=== PATIENT | male | born 1975 | race Caucasian/White ===

== ENCOUNTER 2016-12-19 16:21 | Emergency (ER) | payer OTHER ==
[2016-12-19 17:06] LABS: BASO # 0.1 K/mm3 (0.0-0.2); BASO % 0.7 % (0.0-1.0); EOS # 0.3 K/mm3 (0.0-0.50); EOS % 3.4 % (0.0-3.0); LARGE UNSTAINED CELL # 0.2 K/mm3 (0.0-0.4); LARGE UNSTAINED CELL % 2.4 % (0.0-4.0); LYMPH # 3.1 K/mm3 (1.5-4.5); LYMPH % 35.2 % (24.0-44.0); MEAN CORPUSCULAR VOLUME 88.6 fl (80.0-96.0); MONO # 0.6 K/mm3 (0.0-0.8); MONO % 6.6 % (0.0-5.0); NEUTROPHILS # 4.6 K/mm3 (1.8-7.7); NEUTROPHILS % 51.6 % (36.0-66.0); PLATELET COUNT, AUTOMATED 261 k/mm3 (150-450); RED CELL DISTRIBUTION WIDTH 12.5 % (11.5-14.5); WHITE BLOOD COUNT 8.9 K/mm3 (4.0-10.0)
--- NOTE | 2016-12-19 17:07 | REP ---
Portable chest x-ray: Sitting AP view. History: Chest pain. Findings: The lungs are well inflated and free of infiltrate. Pleural angles are sharp. Heart size is normal. Pulmonary vasculature is not increased. Impression: No active disease. Signed by Ken Devine MD 12/20/2016 07:50 A
[2016-12-19 17:31] LABS: ANION GAP 7 MEQ/L (8-16); BLOOD UREA NITROGEN 11 MG/DL (7-18); CARBON DIOXIDE LEVEL 30 MEQ/L (21-32); CHLORIDE LEVEL 105 MEQ/L (98-107); CREATININE FOR GFR 1.02 MG/DL (0.70-1.30); GLOMERULAR FILTRATION RATE > 60.0 (>60); GLUCOSE, FASTING 85 MG/DL (70-105); POTASSIUM SERUM 3.8 MEQ/L (3.5-5.1); SODIUM LEVEL 142 MEQ/L (136-145)
[2016-12-19] MEDS ORDERED: KETOROLAC 30 MG/ML VIAL (J1885) As Ordered ONE (20:13)
--- NOTE | 2016-12-19 20:23 | EDDOCDS ---
Physician Documentation [facility] Name: Eleazar Lopez Age: 41 yrs Sex: Male : 1975 Arrival Date: 12/19/2016 Time: 16:21 Bed 14 Private MD: Klarissa DAY Disposition: 12/19/16 19:22 Discharged to Home/Self Care. Impression: Other chest pain - low risk acute coronary syndrome or pulmonary embolism. - Condition is Stable. - Discharge Instructions: Nonspecific Chest Pain. - Medication Reconciliation, Local Pharmacy Hours form. - [facility] up: [facility]; When: Call to arrange an appointment; Reason: Recheck today's complaints, Continuance of care. - Problem is new. - Symptoms are unchanged. - Notes: Use Ibuprofen and Tylenol, as needed, for pain Return to the ED for any further concerns Historical: - Allergies: Codeine; Oxycodone HCl; - Home Meds: 1. Prescribed meds yesterday, has not started, Paxil, Prazosin, Hydroxazine - PMHx: Migraine headaches; PTSD; A-Fib; - PSHx: Cholecystectomy; Right shoulder reconstructive surgery; - Social history: Smoking status: Patient uses tobacco products, current every day smoker. No barriers to communication noted, The patient speaks fluent Korean. - Family history: Not pertinent. - : The pt / caregiver states he / she is not on anticoagulants. Home medication list is obtained from the patient. - Exposure Risk Screening:: None identified. Vital Signs: 12/19 16:24 BP 164 / 102; Pulse 86; Resp 16; Pulse Ox 100% on R/A; Weight 108.41 kg / 239 lbs (R); elp Height 69 in. (175.26 cm) (R); 16:39 BP 154 / 95 (auto/); kcs 16:40 Pulse 74 MON; Pulse Ox 96% ; kcs 17:08 BP 154 / 86 (auto/); kcs 17:08 Pulse 70 MON; Pulse Ox 98% ; kcs 17:38 BP 137 / 79 (auto/); kcs 17:38 Pulse 70 MON; Pulse Ox 96% ; kcs 18:08 BP 143 / 91 (auto/); kcs 18:08 Pulse 70 MON; Resp 18; Pulse Ox 95% ; kcs 18:38 BP 143 / 86 (auto/); kcs 18:38 Pulse 68 MON; Pulse Ox 97% ; kcs 19:08 BP 135 / 86 (auto/); af2 19:08 Pulse 72 MON; Resp 22 S; Pulse Ox 95% on R/A; af2 20:08 BP 146 / 92 (auto/); af2 20:08 Pulse 72 MON; Resp 18 S; Temp 98.4(O); Pulse Ox 96% on R/A; Pain 7/10; af2 16:24 Body Mass Index 35.29 (108.41 kg, 175.26 cm) elp MDM: 16:32 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 sd1 16:32 IV Saline Lock ordered. sd1 16:32 Rhythm Strip to chart ordered. sd1 16:32 Undress patient appropriately for examination ordered. sd1 16:34 Basic Metabolic Profile Ordered. EDMS 16:34 CBC with Diff Ordered. EDMS 16:34 Cardiac Injury Profile Ordered. EDMS 16:34 Troponin Ordered. EDMS 16:34 portable chest Ordered. EDMS 16:34 ECG WITH READING ER PHYS+CARDIAG ordered. EDMS 17:51 Repeat Temperature - Oral: Inform provider of result ordered. le 17:52 D-Dimer Quant Ordered. EDMS 18:02 REGULAR+DIET ordered. EDMS 19:18 Basic Metabolic Profile Reviewed. le 19:18 CBC with Diff Reviewed. le 19:18 Cardiac Injury Profile Reviewed. le 19:18 Troponin Reviewed. le 19:18 D-Dimer Quant Reviewed. le 19:18 portable chest Reviewed. le 19:59 Financial registration complete. ks16 20:05 ketorolac 30 mg IVP once ordered. le 20:11 [facility] Payment Agreement was scanned into [employer] and attached to record. ks16 Administered Medications: 20:19 Drug: ketorolac 30 mg [ketorolac 30 mg/mL (1 mL) injection solution (1 mL)] Route: IVP; af2 Site: right antecubital; Signatures: Dispatcher [employer] EDOH Carmenza Loja MD MD sd1 Vandana Ryan, RN RN Sam Luna RN RN Celine Metz, HADOOP ADMIN HADOOP ADMIN Sasha Andrews RN RN af2 Alina Orosco, Reg Reg ks16 The chart was reviewed and I authenticate all verbal orders and agree with the evaluation and treatment provided.Attachments: 20:11 [facility] Payment Agreement ks16 MTDD
--- NOTE | 2016-12-19 20:23 | EDDOCDS ---
Nurse's Notes [facility] Name: Eleazar Lopez Age: 41 yrs Sex: Male : 1975 Arrival Date: 12/19/2016 Time: 16:21 Bed 14 Private MD: PRKlarissa CHRISTIAN Diagnosis: Other chest pain-low risk acute coronary syndrome or pulmonary embolism Presentation: 12/19 16:25 Presenting complaint: Patient states: Left sided chest pain radiating to left shoulder dwg ''on and off'' since 10am today. Aspirin was not taken prior to arrival. Adult Sepsis Screening: The patient does not have new or worsening altered mentation. Patient's respiratory rate is less than 22. Systolic blood pressure is greater than 100. Patient has a qSOFA score of 0- Negative Sepsis Screen. Suicide/Homicide risk assessment- the patient denies having any suicidal and/or homicidal ideations and does not present with any other emotional, behavioral or mental health complaints. Status: Retired . Transition of care: patient was not received from another setting of care. 16:25 Acuity: MARINA Level 2 dwg 16:25 Method Of Arrival: Walkin/Carried/Asstd dwg Triage Assessment: 16:32 General: Appears in no apparent distress, uncomfortable. Pain: Pain currently is 6 out dwg of 10 on a pain scale. HIV screening NA for this visit Offered previously. 20:22 Cardiovascular: Chest pain episodes. af2 Historical: - Allergies: Codeine; Oxycodone HCl; - Home Meds: 1. Prescribed meds yesterday, has not started, Paxil, Prazosin, Hydroxazine - PMHx: Migraine headaches; PTSD; A-Fib; - PSHx: Cholecystectomy; Right shoulder reconstructive surgery; - Social history: Smoking status: Patient uses tobacco products, current every day smoker. No barriers to communication noted, The patient speaks fluent Pashto. - Family history: Not pertinent. - : The pt / caregiver states he / she is not on anticoagulants. Home medication list is obtained from the patient. - Exposure Risk Screening:: None identified. Screenin:04 Screening information is obtained from the patient. Fall risk: No risks identified. kcs Assistance ADL's: requires no assistance with activities of daily living. Abuse/DV Screen: The patient / caregiver reports he/she is: not in a situation that causes fear, pain or injury. Nutritional screening: No deficits noted. Advance Directives: Currently, there is no health care proxy. home support is adequate. Assessment: 16:57 General: Appears comfortable, well developed, well nourished, well groomed, Behavior is kcs anxious, cooperative, pleasant. Pain: Location: chest. Neurological: Level of Consciousness is awake, alert. Cardiovascular: Rhythm is sinus rhythm. Respiratory: Airway is patent Respiratory effort is even, unlabored, Respiratory pattern is regular, symmetrical, slight sock sara noted both ankles - having tingling in both feet also. Breath sounds are clear bilaterally. Derm: Skin is intact, is healthy with good turgor, Skin is dry, Skin is flushed. 17:49 General: sitting up on stretcher. stating left sided chest pain that radiates to left srm arm. vs stable. NSR on monitor. Antonio Ryan rn and Ángel Whalen JANITOR CLEANER aware. 18:13 Reassessment: Patient states symptoms have not improved. Drinking kasey lae and kcs retaining. Awaiting dinner. Patient was re-evaluated by provider after 2nd episode of chest pain.. General: Appears comfortable, well developed, well nourished, well groomed, Behavior is cooperative, pleasant. Pain: Location: chest to left arm. Pain: Pain currently is 5 out of 10 on a pain scale. Neurological: Level of Consciousness is awake, alert. Cardiovascular: Rhythm is sinus rhythm. Respiratory: Airway is patent Respiratory effort is even, unlabored, Respiratory pattern is regular, symmetrical. Derm: Skin is intact, is healthy with good turgor, Skin is dry, Skin is normal. 18:36 Reassessment: patient eating dinner. kcs 19:13 General: Appears in no apparent distress, comfortable, Behavior is cooperative, pt af2 updated regarding plan of care at this time. . Neurological: Level of Consciousness is awake, alert, obeys commands, Oriented to person, place, time. Cardiovascular: Rhythm is sinus rhythm. Respiratory: Airway is patent Respiratory effort is even, unlabored. Derm: Skin is intact, is healthy with good turgor, Skin is dry, Skin is normal. 20:20 General: Appears in no apparent distress, comfortable, Behavior is appropriate for age, af2 cooperative, provider at bedside to speak with pt.. Neurological: Level of Consciousness is awake, alert, obeys commands, Oriented to person, place, time. Cardiovascular: Rhythm is sinus rhythm No ectopy. Respiratory: Airway is patent Respiratory effort is even, unlabored. Derm: Skin is normal. Vital Signs: 16:24 BP 164 / 102; Pulse 86; Resp 16; Pulse Ox 100% on R/A; Weight 108.41 kg (R); Height 69 elp in. (175.26 cm) (R); 16:39 BP 154 / 95 (auto/); kcs 16:40 Pulse 74 MON; Pulse Ox 96% ; kcs 17:08 BP 154 / 86 (auto/); kcs 17:08 Pulse 70 MON; Pulse Ox 98% ; kcs 17:38 BP 137 / 79 (auto/); kcs 17:38 Pulse 70 MON; Pulse Ox 96% ; kcs 18:08 BP 143 / 91 (auto/); kcs 18:08 Pulse 70 MON; Resp 18; Pulse Ox 95% ; kcs 18:38 BP 143 / 86 (auto/); kcs 18:38 Pulse 68 MON; Pulse Ox 97% ; kcs 19:08 BP 135 / 86 (auto/); af2 19:08 Pulse 72 MON; Resp 22 S; Pulse Ox 95% on R/A; af2 20:08 BP 146 / 92 (auto/); af2 20:08 Pulse 72 MON; Resp 18 S; Temp 98.4(O); Pulse Ox 96% on R/A; Pain 7/10; af2 16:24 Body Mass Index 35.29 (108.41 kg, 175.26 cm) elp Vitals: 16:24 Log In Time: December 19, 2016 at 16:22. RN notified that patient meets Red Flag elp criteria. ED Course: 16:21 Patient visited by Leyla Pena PCA. elp 16:21 [facility], Klarissa Reyna is Private Physician. elp 16:21 Patient moved to Waiting elp 16:25 Patient visited by Leyla Pena PCA. elp 16:27 Triage Initiated dwg 16:33 Patient moved to 14 dwg 16:45 Inserted saline lock: 20 gauge in right antecubital area The patient tolerated the kcs procedure well. 16:50 Basic Metabolic Profile Sent. kcs 16:50 CBC with Diff Sent. kcs 16:50 Cardiac Injury Profile Sent. kcs 16:50 Troponin Sent. kcs 17:06 Patient visited by Mony Hope PCA. ct3 17:06 EKG done. (by ED staff). Reviewed by Celine PEÑA. ct3 17:18 portable chest Returned. EDMS 17:28 Celine Whalen FNP is PHCP. le 17:50 Patient visited by Velma Franz RN. srm 18:13 Patient visited by Celine Whalen FNP. le 18:13 Patient visited by Celine Whalen FNP. le 18:56 Sasha Malagon,RN is Primary Nurse. af2 19:04 The patient / caregiver is instructed regarding the plan of care and ED course. Report kcs given to Sasha Malagon RN. front desk monitor on. Pulse ox on. NIBP on. 19:10 Patient visited by Sasha Malagon RN. af2 19:14 Patient visited by Sasha Malagon RN. af2 19:22 [facility] is Referral Physician. le 20:08 Patient name changed from Eleazar\S\\S\John\S\ to Eleazar\S\ \S\[place]. EDMS 20:11 [facility] Payment Agreement was scanned into [employer] and attached to record. ks16 20:21 Discontinued IV lock intact, bleeding controlled, pressure dressing applied, No af2 redness/swelling at site. No procedures done that require assistance. Administered Medications: 20:19 Drug: ketorolac 30 mg [ketorolac 30 mg/mL (1 mL) injection solution (1 mL)] Route: IVP; af2 Site: right antecubital; Order Results: Lab Order: Basic Metabolic Profile; SPEC'M 12/19/16 16:49 Test: GLUCOSE, FASTING; Value: 85; Range: 70-105; Units: MG/DL; Status: F Test: BLOOD UREA NITROGEN; Value: 11; Range: 7-18; Units: MG/DL; Status: F Test: CREATININE FOR GFR; Value: 1.02; Range: 0.70-1.30; Units: MG/DL; Status: F Test: GLOMERULAR FILTRATION RATE; Value: > 60.0; Range: >60; Status: F Test: SODIUM LEVEL; Value: 142; Range: 136-145; Units: MEQ/L; Status: F Test: POTASSIUM SERUM; Value: 3.8; Range: 3.5-5.1; Units: MEQ/L; Status: F Test: CHLORIDE LEVEL; Value: 105; Range: 98-107; Units: MEQ/L; Status: F Test: CARBON DIOXIDE LEVEL; Value: 30; Range: 21-32; Units: MEQ/L; Status: F Test: ANION GAP; Value: 7; Range: 8-16; Abnormal: Below low normal; Units: MEQ/L; Status: F Test: CALCIUM LEVEL; Value: 9.0; Range: 8.5-10.1; Units: MG/DL; Status: F Test Note: ; Units are mL/min/1.73 m2 Chronic Kidney Disease Staging per NKF: Stage I & II GFR >=60 Normal to Mildly Decreased Stage III GFR 30-59 Moderately Decreased Stage IV GFR 15-29 Severely Decreased Stage V GFR <15 Very Little GFR Left ESRD GFR <15 on CARTON INSPECTOR Lab Order: CBC with Diff; SPEC'M 12/19/16 16:49 Test: WHITE BLOOD COUNT; Value: 8.9; Range: 4.0-10.0; Units: K/mm3; Status: F Test: RED BLOOD COUNT; Value: 5.76; Range: 4.30-6.10; Units: M/mm3; Status: F Test: HEMOGLOBIN; Value: 17.9; Range: 14.0-18.0; Units: g/dl; Status: F Test: HEMATOCRIT; Value: 51.1; Range: 42.0-52.0; Units: %; Status: F Test: MEAN CORPUSCULAR VOLUME; Value: 88.6; Range: 80.0-96.0; Units: fl; Status: F Test: MEAN CORPUSCULAR HEMOGLOBIN; Value: 31.0; Range: 27.0-33.0; Units: pg; Status: F Test: MEAN CORPUSCULAR HGB CONC; Value: 35.0; Range: 32.0-36.5; Units: g/dl; Status: F Test: RED CELL DISTRIBUTION WIDTH; Value: 12.5; Range: 11.5-14.5; Units: %; Status: F Test: PLATELET COUNT, AUTOMATED; Value: 261; Range: 150-450; Units: k/mm3; Status: F Test: NEUTROPHILS %; Value: 51.6; Range: 36.0-66.0; Units: %; Status: F Test: LYMPH %; Value: 35.2; Range: 24.0-44.0; Units: %; Status: F Test: MONO %; Value: 6.6; Range: 0.0-5.0; Abnormal: Above high normal; Units: %; Status: F Test: EOS %; Value: 3.4; Range: 0.0-3.0; Abnormal: Above high normal; Units: %; Status: F Test: BASO %; Value: 0.7; Range: 0.0-1.0; Units: %; Status: F Test: LARGE UNSTAINED CELL %; Value: 2.4; Range: 0.0-4.0; Units: %; Status: F Test: NEUTROPHILS #; Value: 4.6; Range: 1.8-7.7; Units: K/mm3; Status: F Test: LYMPH #; Value: 3.1; Range: 1.5-4.5; Units: K/mm3; Status: F Test: MONO #; Value: 0.6; Range: 0.0-0.8; Units: K/mm3; Status: F Test: EOS #; Value: 0.3; Range: 0.0-0.50; Units: K/mm3; Status: F Test: BASO #; Value: 0.1; Range: 0.0-0.2; Units: K/mm3; Status: F Test: LARGE UNSTAINED CELL #; Value: 0.2; Range: 0.0-0.4; Units: K/mm3; Status: F Lab Order: Cardiac Injury Profile; SPEC'M 12/19/16 16:49 Test: CPK CREATINE PHOSPHOKINASE; Value: 101; Range: 39-308; Units: U/L; Status: F Test: CK-MB VALUE MASS; Value: 1.0; Range: 0.0-3.6; Units: NG/ML; Status: F Test: MB/CK RELATIVE INDEX; Value: 0.99; Range: < OR =4; Status: F Test Note: ; DIAGNOSIS CRITERIA MMB ng/ml Relative Index (RI) NON-AMI < or = 5 N/A HARVEY ZONE > 5 < or = 4 AMI > 5 > 4 Lab Order: Troponin; SPEC'M 12/19/16 16:49 Test: TROPONIN I; Value: < 0.02; Range: < 0.10; Units: NG/ML; Status: F Test Note: ; Troponin I Reference Interval for [employer] (TUGG) LOCI: 99th Percentile= 0.00-0.045 ng/ml Risk Stratification: <= 0.10 ng/ml Decreased Risk for Adverse Clinical Events. 0.10-1.50 ng/ml Increased Risk for Adverse Clinical Events. Evaluation of additional criterion and/or repeat testing in 2-6 hours is suggested to rule out myocardial damage. >= 1.50 ng/ml Indicative of Myocardial Injury. Lab Order: D-Dimer Quant; SPEC'M 12/19/16 16:49 Test: D-DIMER QUANT; Value: < 270.0; Range: <500; Units: ng/ml; Status: F Radiology Order: portable chest Test: portable chest REASON FOR EXAMINATION: Chest Pain; Portable chest x-ray: Sitting AP view.; ; History: Chest pain.; ; Findings: The lungs are well inflated and free of infiltrate. Pleural angles; are sharp. Heart size is normal. Pulmonary vasculature is not increased.; ; Impression:; ; No active disease.; ; ; ; ; Unreviewed; Outcome: 19:22 Discharge ordered by Provider. le 20:21 Discharge Assessment: Patient awake, alert and oriented x 3. No cognitive and/or af2 functional deficits noted. Patient verbalized understanding of disposition instructions. patient administered narcotics - no. The following High Risk Discharge criteria are identified: None. Discharged to home ambulatory. Condition: stable. Discharge instructions given to patient, Instructed on discharge instructions, follow up and referral plans. Demonstrated understanding of instructions, Pt was receptive of discharge instructions/ teaching. No special radiology studies were completed. Property :Personal belongings accompany Pt. 20:22 Patient left the ED. af2 Signatures: Dispatcher [employer] EDVandana Perez RN Sam James RN RN dwg Michelson, Staci, RN RN srm Westcott, Celine, JANITOR CLEANER JANITOR CLEANER le Mony Hope, ROLLER CLEANER ROLLER CLEANER ct3 Leyla Pena, ROLLER CLEANER ROLLER CLEANER elp Sasha Malagon RN RN af2 Ana Luisa, Alina, Reg Reg ks16 Corrections: (The following items were deleted from the chart) 18:22 18:13 Reassessment: Patient states symptoms have not improved. kcs kcs 19:14 19:10 General: Appears comfortable, Behavior is cooperative, assumed care of pt at this af2 time, updated regarding plan of care for admission. pt finished neb treatment, reports symptoms have improved- continues to wheeze.. af2 19: 19:10 Neurological: Level of Consciousness is awake, alert, af2 af2 19: 19:10 Cardiovascular: Rhythm is sinus rhythm No ectopy. af2 af2 : 19:10 Respiratory: Airway is patent Respiratory effort is labored, Respiratory pattern af2 is regular, symmetrical, Breath sounds with wheezes bilaterally. Reports shortness of breath af2 : 19:10 Derm: Skin is normal, af2 af2 MTDD
--- NOTE | 2016-12-20 07:30 | ECGEPIP ---
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
--- NOTE | 2016-12-21 21:23 | EDDOCDS ---
Physician Documentation [facility] Name: Eleazar Lopez Age: 41 yrs Sex: Male : 1975 Arrival Date: 12/19/2016 Time: 16:21 Bed 14 Private MD: Klarissa DAY Disposition: 12/19/16 19:22 Discharged to Home/Self Care. Impression: Other chest pain - low risk acute coronary syndrome or pulmonary embolism. - Condition is Stable. - Discharge Instructions: Nonspecific Chest Pain. - Medication Reconciliation, Local Pharmacy Hours form. - Follow up: [facility]; When: Call to arrange an appointment; Reason: Recheck today's complaints, Continuance of care. - Problem is new. - Symptoms are unchanged. - Notes: Use Ibuprofen and Tylenol, as needed, for pain Return to the ED for any further concerns Historical: - Allergies: Codeine; Oxycodone HCl; - Home Meds: 1. Prescribed meds yesterday, has not started, Paxil, Prazosin, Hydroxazine - PMHx: Migraine headaches; PTSD; A-Fib; - PSHx: Cholecystectomy; Right shoulder reconstructive surgery; - Social history: Smoking status: Patient uses tobacco products, current every day smoker. No barriers to communication noted, The patient speaks fluent Kinyarwanda. - Family history: Not pertinent. - : The pt / caregiver states he / she is not on anticoagulants. Home medication list is obtained from the patient. - Exposure Risk Screening:: None identified. Vital Signs: 12/19 16:24 BP 164 / 102; Pulse 86; Resp 16; Pulse Ox 100% on R/A; Weight 108.41 kg / 239 lbs (R); elp Height 69 in. (175.26 cm) (R); 16:39 BP 154 / 95 (auto/); kcs 16:40 Pulse 74 MON; Pulse Ox 96% ; kcs 17:08 BP 154 / 86 (auto/); kcs 17:08 Pulse 70 MON; Pulse Ox 98% ; kcs 17:38 BP 137 / 79 (auto/); kcs 17:38 Pulse 70 MON; Pulse Ox 96% ; kcs 18:08 BP 143 / 91 (auto/); kcs 18:08 Pulse 70 MON; Resp 18; Pulse Ox 95% ; kcs 18:38 BP 143 / 86 (auto/); kcs 18:38 Pulse 68 MON; Pulse Ox 97% ; kcs 19:08 BP 135 / 86 (auto/); af2 19:08 Pulse 72 MON; Resp 22 S; Pulse Ox 95% on R/A; af2 20:08 BP 146 / 92 (auto/); af2 20:08 Pulse 72 MON; Resp 18 S; Temp 98.4(O); Pulse Ox 96% on R/A; Pain 7/10; af2 16:24 Body Mass Index 35.29 (108.41 kg, 175.26 cm) elp MDM: 16:32 Wood Machinist Apprentice/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 sd1 16:32 IV Saline Lock ordered. sd1 16:32 Rhythm Strip to chart ordered. sd1 16:32 Undress patient appropriately for examination ordered. sd1 16:34 Basic Metabolic Profile Ordered. EDMS 16:34 CBC with Diff Ordered. EDMS 16:34 Cardiac Injury Profile Ordered. EDMS 16:34 Troponin Ordered. EDMS 16:34 portable chest Ordered. EDMS 16:34 ECG WITH READING ER PHYS+CARDIAG ordered. EDMS 17:51 Repeat Temperature - Oral: Inform provider of result ordered. le 17:52 D-Dimer Quant Ordered. EDMS 18:02 REGULAR+DIET ordered. EDMS 19:18 Basic Metabolic Profile Reviewed. le 19:18 CBC with Diff Reviewed. le 19:18 Cardiac Injury Profile Reviewed. le 19:18 Troponin Reviewed. le 19:18 D-Dimer Quant Reviewed. le 19:18 portable chest Reviewed. le 19:59 Financial registration complete. ks16 20:05 ketorolac 30 mg IVP once ordered. le 20:11 [facility] Payment Agreement was scanned into [employer] and attached to record. ks16 12/20 10:47 T-Sheet-- Draft Copy was scanned into [employer] and attached to record. gb 10:47 ECG/EKG was scanned into [employer] and attached to record. gb Administered Medications: 12/19 20:19 Drug: ketorolac 30 mg [ketorolac 30 mg/mL (1 mL) injection solution (1 mL)] Route: IVP; af2 Site: right antecubital; Signatures: Dispatcher [employer] EDMS Carmenza Loja MD MD sd1 Vandana Ryan RN RN Sam Luna RN Alecia Leahy, Reg Reg gb Celine Whalen, Sasha Watson RN RN af2 Sorenson, Kimberly, Reg Reg [email or web address] The chart was reviewed and I authenticate all verbal orders and agree with the evaluation and treatment provided.Attachments: 20:11 [facility] Payment Agreement ks16 12/20 10:47 T-Sheet-- Draft Copy gb 10:47 ECG/EKG gb Chart Complete MTDD
--- NOTE | 2016-12-21 21:23 | EDDOCDS ---
Nurse's Notes [facility] Name: Ilana Pisano Age: 41 yrs Sex: Male : 1975 Arrival Date: 12/19/2016 Time: 16:21 Bed 14 Private MD: LAKlarissa CHRISTIAN Diagnosis: Other chest pain-low risk acute coronary syndrome or pulmonary embolism Presentation: 12/19 16:25 Presenting complaint: Patient states: Left sided chest pain radiating to left shoulder dwg ''on and off'' since 10am today. Aspirin was not taken prior to arrival. Adult Sepsis Screening: The patient does not have new or worsening altered mentation. Patient's respiratory rate is less than 22. Systolic blood pressure is greater than 100. Patient has a qSOFA score of 0- Negative Sepsis Screen. Suicide/Homicide risk assessment- the patient denies having any suicidal and/or homicidal ideations and does not present with any other emotional, behavioral or mental health complaints. Status: Retired . Transition of care: patient was not received from another setting of care. 16:25 Acuity: MARINA Level 2 dwg 16:25 Method Of Arrival: Walkin/Carried/Asstd dwg Triage Assessment: 16:32 General: Appears in no apparent distress, uncomfortable. Pain: Pain currently is 6 out dwg of 10 on a pain scale. HIV screening NA for this visit Offered previously. 20:22 Cardiovascular: Chest pain episodes. af2 Historical: - Allergies: Codeine; Oxycodone HCl; - Home Meds: 1. Prescribed meds yesterday, has not started, Paxil, Prazosin, Hydroxazine - PMHx: Migraine headaches; PTSD; A-Fib; - PSHx: Cholecystectomy; Right shoulder reconstructive surgery; - Social history: Smoking status: Patient uses tobacco products, current every day smoker. No barriers to communication noted, The patient speaks fluent Frisian. - Family history: Not pertinent. - : The pt / caregiver states he / she is not on anticoagulants. Home medication list is obtained from the patient. - Exposure Risk Screening:: None identified. Screenin:04 Screening information is obtained from the patient. Fall risk: No risks identified. kcs Assistance ADL's: requires no assistance with activities of daily living. Abuse/DV Screen: The patient / caregiver reports he/she is: not in a situation that causes fear, pain or injury. Nutritional screening: No deficits noted. Advance Directives: Currently, there is no health care proxy. home support is adequate. Assessment: 16:57 General: Appears comfortable, well developed, well nourished, well groomed, Behavior is kcs anxious, cooperative, pleasant. Pain: Location: chest. Neurological: Level of Consciousness is awake, alert. Cardiovascular: Rhythm is sinus rhythm. Respiratory: Airway is patent Respiratory effort is even, unlabored, Respiratory pattern is regular, symmetrical, slight sock sara noted both ankles - having tingling in both feet also. Breath sounds are clear bilaterally. Derm: Skin is intact, is healthy with good turgor, Skin is dry, Skin is flushed. 17:49 General: sitting up on stretcher. stating left sided chest pain that radiates to left srm arm. vs stable. NSR on monitor. Antonio Ryan rn and Ángel Whalen AQUATICS GROUP FITNESS INSTRUCTOR aware. 18:13 Reassessment: Patient states symptoms have not improved. Drinking kasey lae and kcs retaining. Awaiting dinner. Patient was re-evaluated by provider after 2nd episode of chest pain.. General: Appears comfortable, well developed, well nourished, well groomed, Behavior is cooperative, pleasant. Pain: Location: chest to left arm. Pain: Pain currently is 5 out of 10 on a pain scale. Neurological: Level of Consciousness is awake, alert. Cardiovascular: Rhythm is sinus rhythm. Respiratory: Airway is patent Respiratory effort is even, unlabored, Respiratory pattern is regular, symmetrical. Derm: Skin is intact, is healthy with good turgor, Skin is dry, Skin is normal. 18:36 Reassessment: patient eating dinner. kcs 19:13 General: Appears in no apparent distress, comfortable, Behavior is cooperative, pt af2 updated regarding plan of care at this time. . Neurological: Level of Consciousness is awake, alert, obeys commands, Oriented to person, place, time. Cardiovascular: Rhythm is sinus rhythm. Respiratory: Airway is patent Respiratory effort is even, unlabored. Derm: Skin is intact, is healthy with good turgor, Skin is dry, Skin is normal. 20:20 General: Appears in no apparent distress, comfortable, Behavior is appropriate for age, af2 cooperative, provider at bedside to speak with pt.. Neurological: Level of Consciousness is awake, alert, obeys commands, Oriented to person, place, time. Cardiovascular: Rhythm is sinus rhythm No ectopy. Respiratory: Airway is patent Respiratory effort is even, unlabored. Derm: Skin is normal. Vital Signs: 16:24 BP 164 / 102; Pulse 86; Resp 16; Pulse Ox 100% on R/A; Weight 108.41 kg (R); Height 69 elp in. (175.26 cm) (R); 16:39 BP 154 / 95 (auto/); kcs 16:40 Pulse 74 MON; Pulse Ox 96% ; kcs 17:08 BP 154 / 86 (auto/); kcs 17:08 Pulse 70 MON; Pulse Ox 98% ; kcs 17:38 BP 137 / 79 (auto/); kcs 17:38 Pulse 70 MON; Pulse Ox 96% ; kcs 18:08 BP 143 / 91 (auto/); kcs 18:08 Pulse 70 MON; Resp 18; Pulse Ox 95% ; kcs 18:38 BP 143 / 86 (auto/); kcs 18:38 Pulse 68 MON; Pulse Ox 97% ; kcs 19:08 BP 135 / 86 (auto/); af2 19:08 Pulse 72 MON; Resp 22 S; Pulse Ox 95% on R/A; af2 20:08 BP 146 / 92 (auto/); af2 20:08 Pulse 72 MON; Resp 18 S; Temp 98.4(O); Pulse Ox 96% on R/A; Pain 7/10; af2 16:24 Body Mass Index 35.29 (108.41 kg, 175.26 cm) elp Vitals: 16:24 Log In Time: December 19, 2016 at 16:22. RN notified that patient meets Red Flag elp criteria. ED Course: 16:21 Patient visited by Leyla Pena PCA. elp 16:21 [facility], Klarissa Reyna is Private Physician. elp 16:21 Patient moved to Waiting elp 16:25 Patient visited by Leyla Pena PCA. elp 16:27 Triage Initiated dwg 16:33 Patient moved to 14 dwg 16:45 Inserted saline lock: 20 gauge in right antecubital area The patient tolerated the kcs procedure well. 16:50 Basic Metabolic Profile Sent. kcs 16:50 CBC with Diff Sent. kcs 16:50 Cardiac Injury Profile Sent. kcs 16:50 Troponin Sent. kcs 17:06 Patient visited by Mony Hope PCA. ct3 17:06 EKG done. (by ED staff). Reviewed by Celine PEÑA. ct3 17:18 portable chest Returned. EDMS 17:28 Celine Whalen FNP is PHCP. le 17:50 Patient visited by Velma Franz RN. srm 18:13 Patient visited by Celine Whalen FNP. le 18:13 Patient visited by Celine Whalen FNP. le 18:56 Sasha Malagon,RN is Primary Nurse. af2 19:04 The patient / caregiver is instructed regarding the plan of care and ED course. Report kcs given to Sasha Malagon RN. director of employer services on. Pulse ox on. NIBP on. 19:10 Patient visited by Sasha Malagon RN. af2 19:14 Patient visited by Sasha Malagon RN. af2 19:22 [facility] is Referral Physician. le 20:08 Patient name changed from Ilana\S\\S\John\S\ to Ilana\S\ \S\[place]. EDMS 20:11 [facility] [place] Agreement was scanned into [employer] and attached to record. ks16 20:21 Discontinued IV lock intact, bleeding controlled, pressure dressing applied, No af2 redness/swelling at site. No procedures done that require assistance. 12/20 07:53 EKG-ADULT Returned. EDMS 07:56 portable chest Returned. EDMS 10:47 T-Sheet-- Draft Copy was scanned into [employer] and attached to record. gb 10:47 ECG/EKG was scanned into [employer] and attached to record. gb Administered Medications: 12/19 20:19 Drug: ketorolac 30 mg [ketorolac 30 mg/mL (1 mL) injection solution (1 mL)] Route: IVP; af2 Site: right antecubital; Order Results: Lab Order: Basic Metabolic Profile; SPEC'M 12/19/16 16:49 Test: GLUCOSE, FASTING; Value: 85; Range: 70-105; Units: MG/DL; Status: F Test: BLOOD UREA NITROGEN; Value: 11; Range: 7-18; Units: MG/DL; Status: F Test: CREATININE FOR GFR; Value: 1.02; Range: 0.70-1.30; Units: MG/DL; Status: F Test: GLOMERULAR FILTRATION RATE; Value: > 60.0; Range: >60; Status: F Test: SODIUM LEVEL; Value: 142; Range: 136-145; Units: MEQ/L; Status: F Test: POTASSIUM SERUM; Value: 3.8; Range: 3.5-5.1; Units: MEQ/L; Status: F Test: CHLORIDE LEVEL; Value: 105; Range: 98-107; Units: MEQ/L; Status: F Test: CARBON DIOXIDE LEVEL; Value: 30; Range: 21-32; Units: MEQ/L; Status: F Test: ANION GAP; Value: 7; Range: 8-16; Abnormal: Below low normal; Units: MEQ/L; Status: F Test: CALCIUM LEVEL; Value: 9.0; Range: 8.5-10.1; Units: MG/DL; Status: F Test Note: ; Units are mL/min/1.73 m2 Chronic Kidney Disease Staging per NKF: Stage I & II GFR >=60 Normal to Mildly Decreased Stage III GFR 30-59 Moderately Decreased Stage IV GFR 15-29 Severely Decreased Stage V GFR <15 Very Little GFR Left ESRD GFR <15 on ECONOMIC GEOGRAPHER Lab Order: CBC with Diff; SPEC'M 12/19/16 16:49 Test: WHITE BLOOD COUNT; Value: 8.9; Range: 4.0-10.0; Units: K/mm3; Status: F Test: RED BLOOD COUNT; Value: 5.76; Range: 4.30-6.10; Units: M/mm3; Status: F Test: HEMOGLOBIN; Value: 17.9; Range: 14.0-18.0; Units: g/dl; Status: F Test: HEMATOCRIT; Value: 51.1; Range: 42.0-52.0; Units: %; Status: F Test: MEAN CORPUSCULAR VOLUME; Value: 88.6; Range: 80.0-96.0; Units: fl; Status: F Test: MEAN CORPUSCULAR HEMOGLOBIN; Value: 31.0; Range: 27.0-33.0; Units: pg; Status: F Test: MEAN CORPUSCULAR HGB CONC; Value: 35.0; Range: 32.0-36.5; Units: g/dl; Status: F Test: RED CELL DISTRIBUTION WIDTH; Value: 12.5; Range: 11.5-14.5; Units: %; Status: F Test: PLATELET COUNT, AUTOMATED; Value: 261; Range: 150-450; Units: k/mm3; Status: F Test: NEUTROPHILS %; Value: 51.6; Range: 36.0-66.0; Units: %; Status: F Test: LYMPH %; Value: 35.2; Range: 24.0-44.0; Units: %; Status: F Test: MONO %; Value: 6.6; Range: 0.0-5.0; Abnormal: Above high normal; Units: %; Status: F Test: EOS %; Value: 3.4; Range: 0.0-3.0; Abnormal: Above high normal; Units: %; Status: F Test: BASO %; Value: 0.7; Range: 0.0-1.0; Units: %; Status: F Test: LARGE UNSTAINED CELL %; Value: 2.4; Range: 0.0-4.0; Units: %; Status: F Test: NEUTROPHILS #; Value: 4.6; Range: 1.8-7.7; Units: K/mm3; Status: F Test: LYMPH #; Value: 3.1; Range: 1.5-4.5; Units: K/mm3; Status: F Test: MONO #; Value: 0.6; Range: 0.0-0.8; Units: K/mm3; Status: F Test: EOS #; Value: 0.3; Range: 0.0-0.50; Units: K/mm3; Status: F Test: BASO #; Value: 0.1; Range: 0.0-0.2; Units: K/mm3; Status: F Test: LARGE UNSTAINED CELL #; Value: 0.2; Range: 0.0-0.4; Units: K/mm3; Status: F Lab Order: Cardiac Injury Profile; SPEC'M 12/19/16 16:49 Test: CPK CREATINE PHOSPHOKINASE; Value: 101; Range: 39-308; Units: U/L; Status: F Test: CK-MB VALUE MASS; Value: 1.0; Range: 0.0-3.6; Units: NG/ML; Status: F Test: MB/CK RELATIVE INDEX; Value: 0.99; Range: < OR =4; Status: F Test Note: ; DIAGNOSIS CRITERIA MMB ng/ml Relative Index (RI) NON-AMI < or = 5 N/A HARVEY ZONE > 5 < or = 4 AMI > 5 > 4 Lab Order: Troponin; SPEC'M 12/19/16 16:49 Test: TROPONIN I; Value: < 0.02; Range: < 0.10; Units: NG/ML; Status: F Test Note: ; Troponin I Reference Interval for Siemens Appointedd LOCI: 99th Percentile= 0.00-0.045 ng/ml Risk Stratification: <= 0.10 ng/ml Decreased Risk for Adverse Clinical Events. 0.10-1.50 ng/ml Increased Risk for Adverse Clinical Events. Evaluation of additional criterion and/or repeat testing in 2-6 hours is suggested to rule out myocardial damage. >= 1.50 ng/ml Indicative of Myocardial Injury. Lab Order: D-Dimer Quant; SPEC'M 12/19/16 16:49 Test: D-DIMER QUANT; Value: < 270.0; Range: <500; Units: ng/ml; Status: F Radiology Order: portable chest Test: portable chest REASON FOR EXAMINATION: Chest Pain; Portable chest x-ray: Sitting AP view.; ; History: Chest pain.; ; Findings: The lungs are well inflated and free of infiltrate. Pleural angles; are sharp. Heart size is normal. 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 le 20:21 Discharge Assessment: Patient awake, alert and oriented x 3. No cognitive and/or af2 functional deficits noted. Patient verbalized understanding of disposition instructions. patient administered narcotics - no. The following High Risk Discharge criteria are identified: None. Discharged to home ambulatory. Condition: stable. Discharge instructions given to patient, Instructed on discharge instructions, follow up and referral plans. Demonstrated understanding of instructions, Pt was receptive of discharge instructions/ teaching. No special radiology studies were completed. Property :Personal belongings accompany Pt. 20:22 Patient left the ED. af2 Signatures: Dispatcher [employer] EDMS Vandana Ryan RN RN kcs Greene, Daniel, RN RN dwg Michelson, Staci, RN RN [facility] Deyvi, Alecia, Reg Reg gb MarleeCeline nance, AQUATICS GROUP FITNESS INSTRUCTOR AQUATICS GROUP FITNESS INSTRUCTOR le Mony Hope, VISUAL MERCHANDISING ASSISTANT VISUAL MERCHANDISING ASSISTANT ct3 Leyla Pena, VISUAL MERCHANDISING ASSISTANT VISUAL MERCHANDISING ASSISTANT elp Sasha Malagon,RN RN af2 Alina Orosco, Reg Reg ks16 Corrections: (The following items were deleted from the chart) 18:22 18:13 Reassessment: Patient states symptoms have not improved. kcs kcs 19:14 19:10 General: Appears comfortable, Behavior is cooperative, assumed care of pt at this af2 time, updated regarding plan of care for admission. pt finished neb treatment, reports symptoms have improved- continues to wheeze.. af2 19:14 19:10 Neurological: Level of Consciousness is awake, alert, af2 af2 19:14 19:10 Cardiovascular: Rhythm is sinus rhythm No ectopy. af2 af2 19:14 19:10 Respiratory: Airway is patent Respiratory effort is labored, Respiratory pattern af2 is regular, symmetrical, Breath sounds with wheezes bilaterally. Reports shortness of breath af2 19:14 19:10 Derm: Skin is normal, af2 af2 Chart Complete MTDD
--- NOTE | 2016-12-21 21:23 | EDDOCDS ---
Physician Documentation [facility] Name: Eleazar Lopez Age: 41 yrs Sex: Male : 1975 Arrival Date: 12/19/2016 Time: 16:21 Bed 14 Private MD: Klarissa DAY Disposition: 12/19/16 19:22 Discharged to Home/Self Care. Impression: Other chest pain - low risk acute coronary syndrome or pulmonary embolism. - Condition is Stable. - Discharge Instructions: Nonspecific Chest Pain. - Medication Reconciliation, Local Pharmacy Hours form. - [facility]: [facility]; When: Call to arrange an appointment; Reason: Recheck today's complaints, Continuance of care. - Problem is new. - Symptoms are unchanged. - Notes: Use Ibuprofen and Tylenol, as needed, for pain Return to the ED for any further concerns Historical: - Allergies: Codeine; Oxycodone HCl; - Home Meds: 1. Prescribed meds yesterday, has not started, Paxil, Prazosin, Hydroxazine - PMHx: Migraine headaches; PTSD; A-Fib; - PSHx: Cholecystectomy; Right shoulder reconstructive surgery; - Social history: Smoking status: Patient uses tobacco products, current every day smoker. No barriers to communication noted, The patient speaks fluent Maltese. - Family history: Not pertinent. - : The pt / caregiver states he / she is not on anticoagulants. Home medication list is obtained from the patient. - Exposure Risk Screening:: None identified. Vital Signs: 12/19 16:24 BP 164 / 102; Pulse 86; Resp 16; Pulse Ox 100% on R/A; Weight 108.41 kg / 239 lbs (R); elp Height 69 in. (175.26 cm) (R); 16:39 BP 154 / 95 (auto/); kcs 16:40 Pulse 74 MON; Pulse Ox 96% ; kcs 17:08 BP 154 / 86 (auto/); kcs 17:08 Pulse 70 MON; Pulse Ox 98% ; kcs 17:38 BP 137 / 79 (auto/); kcs 17:38 Pulse 70 MON; Pulse Ox 96% ; kcs 18:08 BP 143 / 91 (auto/); kcs 18:08 Pulse 70 MON; Resp 18; Pulse Ox 95% ; kcs 18:38 BP 143 / 86 (auto/); kcs 18:38 Pulse 68 MON; Pulse Ox 97% ; kcs 19:08 BP 135 / 86 (auto/); af2 19:08 Pulse 72 MON; Resp 22 S; Pulse Ox 95% on R/A; af2 20:08 BP 146 / 92 (auto/); af2 20:08 Pulse 72 MON; Resp 18 S; Temp 98.4(O); Pulse Ox 96% on R/A; Pain 7/10; af2 16:24 Body Mass Index 35.29 (108.41 kg, 175.26 cm) elp MDM: 16:32 Grout Machine Operator/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 sd1 16:32 IV Saline Lock ordered. sd1 16:32 Rhythm Strip to chart ordered. sd1 16:32 Undress patient appropriately for examination ordered. sd1 16:34 Basic Metabolic Profile Ordered. EDMS 16:34 CBC with Diff Ordered. EDMS 16:34 Cardiac Injury Profile Ordered. EDMS 16:34 Troponin Ordered. EDMS 16:34 portable chest Ordered. EDMS 16:34 ECG WITH READING ER PHYS+CARDIAG ordered. EDMS 17:51 Repeat Temperature - Oral: Inform provider of result ordered. le 17:52 D-Dimer Quant Ordered. EDMS 18:02 REGULAR+DIET ordered. EDMS 19:18 Basic Metabolic Profile Reviewed. le 19:18 CBC with Diff Reviewed. le 19:18 Cardiac Injury Profile Reviewed. le 19:18 Troponin Reviewed. le 19:18 D-Dimer Quant Reviewed. le 19:18 portable chest Reviewed. le 19:59 Financial registration complete. ks16 20:05 ketorolac 30 mg IVP once ordered. le 20:11 [facility] [place] Agreement was scanned into [employer] and attached to record. ks16 12/20 10:47 T-Sheet-- Draft Copy was scanned into [employer] and attached to record. gb 10:47 ECG/EKG was scanned into [employer] and attached to record. gb Administered Medications: 12/19 20:19 Drug: ketorolac 30 mg [ketorolac 30 mg/mL (1 mL) injection solution (1 mL)] Route: IVP; af2 Site: right antecubital; Signatures: Dispatcher [employer] EDMS Carmenza Loja MD MD sd1 Vandana Ryan RN RN Sam Luna RN Alecia Leahy, Reg Reg gb Celine Whalen, Sasha Watson RN RN af2 Sorenson, Kimberly, Reg Reg ks16 The chart was reviewed and I authenticate all verbal orders and agree with the evaluation and treatment provided.Attachments: 20:11 [facility] Payment Agreement ks16 12/20 10:47 T-Sheet-- Draft Copy gb 10:47 ECG/EKG gb Chart Complete MTDD
== END 2016-12-19 20:22 | disposition home or self-care (01) ==
LOC: M ED 16:21
DX: R07.9 Chest pain, unspecified (principal); I48.91 Unspecified atrial fibrillation; F43.10 Post-traumatic stress disorder, unspecified; G43.909 Migraine, unspecified, not intractable, without status migrainosus; F17.210 Nicotine dependence, cigarettes, uncomplicated; Z88.5 Allergy status to narcotic agent
CPT/HCPCS: 71010; 80048; 82550; 82553; 85025; 85379; 93005; 93041; 96374; 99284; J1885

== ENCOUNTER 2019-10-14 01:52 | Emergency (ER) | payer OTHER ==
[~2019-10-14] VITALS: Ht 175.3 cm; Wt 104.5 kg
[2019-10-14 02:20] LABS: BASO % 0.3 % (0.0-1.0); EOS # 0.4 10^3/uL (0.0-0.5); EOS % 4.7 % (0.0-3.0); HEMATOCRIT 43.6 % (42.0-52.0); HEMOGLOBIN 14.7 g/dl (13.5-17.5); LYMPH # 3.4 10^3/uL (1.5-5.0); LYMPH % 38.7 % (24.0-44.0); MEAN CORPUSCULAR HEMOGLOBIN 30.6 pg (27.0-33.0); MEAN CORPUSCULAR HGB CONC 33.7 g/dl (32.0-36.5); MEAN CORPUSCULAR VOLUME 90.6 fl (80.0-96.0); MONO # 0.7 10^3/uL (0.0-0.8); MONO % 8.4 % (0.0-5.0); NEUTROPHILS # 4.1 10^3/uL (1.5-8.5); NEUTROPHILS % 47.6 % (36.0-66.0); PLATELET COUNT, AUTOMATED 203 10^3/uL (150-450); RED BLOOD COUNT 4.81 10^6/uL (4.30-6.10); WHITE BLOOD COUNT 8.7 10^3/uL (4.0-10.0)
[2019-10-14] MEDS ORDERED: TRAZ-163 PO (02:24)
[2019-10-14] MEDS ORDERED: TOPR100T PO (02:24)
[2019-10-14] MEDS ORDERED: ROBA750T4 PO (02:24)
[2019-10-14] MEDS ORDERED: CELE1CAP9 PO (02:24)
[2019-10-14] MEDS ORDERED: LITH300C PO (02:24)
[2019-10-14] MEDS ORDERED: GABA-845 PO (02:24)
[2019-10-14] MEDS ORDERED: PRAZ2CAP PO (02:24)
[2019-10-14] MEDS ORDERED: PARO10TA3 PO (02:24)
--- NOTE | 2019-10-14 02:29 | REPVR ---
PROCEDURE INFORMATION: Exam: CT Head Without Contrast Exam date and time: 10/14/2019 2:11 AM Age: 43 years old Clinical history: Injury or trauma; Fall; Initial encounter; Concussion / head injury; Consciousness not specified; Additional info: Sync TECHNIQUE: Imaging protocol: Computed tomography of the head without contrast. Radiation optimization: All CT scans at this facility use at least one of these dose optimization techniques: automated exposure control; mA and/or kV adjustment per patient size (includes targeted exams where dose is matched to clinical indication); or iterative reconstruction. COMPARISON: No relevant prior studies available. FINDINGS: Brain: Normal. No hemorrhage. Unremarkable white matter. No mass effect. Ventricles: Normal. No ventriculomegaly. Bones/joints: Unremarkable. No acute fracture. Sinuses: Visualized sinuses are unremarkable. No fluid levels. Mastoid air cells: Visualized mastoid air cells are well aerated. Soft tissues: Unremarkable. IMPRESSION: No acute intracranial abnormality. Electronically signed by: Ildefonso Merrill On 10/14/2019 02:28:49 AM
[2019-10-14 02:49] LABS: BLOOD UREA NITROGEN 14 MG/DL (7-18); CARBON DIOXIDE LEVEL 26 MEQ/L (21-32); CHLORIDE LEVEL 106 MEQ/L (98-107); CREATININE FOR GFR 1.13 MG/DL (0.70-1.30); ETHYL ALCOHOL (ETHANOL) 0.041 % (0.000-0.010); GLOMERULAR FILTRATION RATE > 60.0 (>60); GLUCOSE, FASTING 94 MG/DL (70-100); SODIUM LEVEL 140 MEQ/L (136-145)
[2019-10-14] MEDS ORDERED: NS 1,000 ML IV ONE (03:00)
[2019-10-14] MEDS ORDERED: KETOROLAC 30 MG/ML VIAL (J1885) IV ONE (03:00)
[2019-10-14 03:07] LABS: CK-MB VALUE MASS < 1.0 NG/ML (<3.6); CPK CREATINE PHOSPHOKINASE 105 U/L (39-308); MB/CK RELATIVE INDEX 0.95 (< OR =4); TROPONIN I < 0.02 NG/ML (< 0.10)
[2019-10-14 03:55] VITALS: BP 102/60
[2019-10-14 12:48] LABS: LITHIUM LEVEL 0.73 MEQ/L (0.60-1.20)
--- NOTE | 2019-10-14 15:03 | ECGEPIP ---
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
== END 2019-10-14 03:57 | disposition home or self-care (01) ==
LOC: M ED 01:52
DX: R42 Dizziness and giddiness (principal); F10.10 Alcohol abuse, uncomplicated; I45.89 Other specified conduction disorders; R51 Headache; M25.512 Pain in left shoulder; W19.XXXA Unspecified fall, initial encounter; Y92.9 Unspecified place or not applicable; Y93.9 Activity, unspecified; Y99.9 Unspecified external cause status; F31.9 Bipolar disorder, unspecified; F17.200 Nicotine dependence, unspecified, uncomplicated; Z79.899 Other long term (current) drug therapy; Z88.5 Allergy status to narcotic agent; Z88.8 Allergy status to other drugs, medicaments and biological substances
CPT/HCPCS: 70450; 80048; 80178; 82550; 82553; 84484; 85025; 93005; 96361; 96374; 99284; G0480; J1885